=== PATIENT | female | born 1950 | race American Indian/Alaskan Native ===

== ENCOUNTER 2020-02-18 14:33 | Emergency (ER) | payer MEDICARE ==
[2020-02-18 16:14] LABS: Eosinophils % (Auto) 0.8 % (0.0-4.3); Monocytes # (Auto) 0.4 K/mm3 (0.0-0.8); Monocytes % (Auto) 6.7 % (0.0-7.3)
--- NOTE | 2020-02-18 16:18 | XRay Report ---
CHEST 1 VIEW INDICATION / CLINICAL INFORMATION: cp, svt. COMPARISON: None available. FINDINGS: SUPPORT DEVICES: None. HEART / MEDIASTINUM: Left atrial enlargement. Mediastinal and hilar contours are otherwise unremarkab le. LUNGS / PLEURA: No significant pulmonary or pleural abnormality. No pneumothorax. ADDITIONAL FINDINGS: No significant additional findings. IMPRESSION: 1. Findings suggesting left atrial enlargement. No acute cardiopulmonary process. Signer Name: Reynold Moreira MD Signed: 02/18/2020 4:13 PM Workstation Name: [id number]
[2020-02-18 16:24] LABS: Basophils % (Auto) 0.4 % (0.0-1.8); Hematocrit 39.6 % (30.3-42.9); Lymphocytes # (Auto) 1.9 K/mm3 (1.2-5.4); Lymphocytes % (Auto) 29.7 % (13.4-35.0); Mean Corpuscular HGB Conc 33 % (30-34); Mean Corpuscular Volume 91 fl (79-97); Platelet Count 193 K/mm3 (140-440); Red Blood Count 4.35 M/mm3 (3.65-5.03); Red Cell Distribution Width 13.6 % (13.2-15.2)
[2020-02-18 16:25] LABS: INR 0.97 (0.87-1.13); Partial Thromboplastin Time 24.1 Sec. (24.2-36.6)
[2020-02-18 16:39] LABS: Blood Urea Nitrogen 9 mg/dL (7-17); Calcium 9.6 mg/dL (8.4-10.2); Hemolysis Index 3
[2020-02-18 16:48] LABS: BUN/Creatinine Ratio 15
--- NOTE | 2020-02-18 16:50 | Emergency Department Report ---
ED Palpitations HPI - General Chief Complaint: Arrhythmia/Palpitations Stated Complaint: CHEST PAIN Time Seen by Provider: 02/18/20 15:19 Source: patient, EMS Mode of arrival: Stretcher Limitations: No Limitations - History of Present Illness Initial Comments: 69-year-old female the past medical history of obesity and elevated cholesterol noncompliant with cholesterol medication presents to the hospital complaining of palpitations. Patient states she felt sudden onset of chest pressure, fast heartbeat, lightheadedness, shortness of breath, diaphoresis. She took Tylenol without improvement. Upon EMS arrival her heart rate was 216. EKG showed SVT. Patient perform vagal maneuvers with conversion to sinus rhythm. She is currently asymptomatic and feeling better. Patient states she had a similar episode in September but started to feel better without calling EMS or seeing a physician. Patient states she is currently taking burdock root and castor oil for constipation and currently denies taking any other medication - Related Data Previous Rx's Medication Instructions Recorded Last Taken Type Metoprolol [Lopressor TAB] 12.5 mg PO BID #30 tablet 02/18/20 Unknown Rx Allergies Allergy/AdvReac Type Severity Reaction Status Date / Time No Known Allergies Allergy Unverified 02/18/20 16:12 ED Review of Systems ROS: Stated complaint: CHEST PAIN Other details as noted in HPI Comment: All other systems reviewed and negative ED Past Medical Hx - Past Medical History Previous Medical History?: Yes Additional medical history: Obese - Surgical History Past Surgical History?: Yes Additional Surgical History: R tib-fib sx - Social History Smoking Status: Never Smoker Substance Use Type: None - Medications Home Medications: Home Medications Medication Instructions Recorded Confirmed Last Taken Type Metoprolol [Lopressor TAB] 12.5 mg PO BID #30 tablet 02/18/20 Unknown Rx ED Physical Exam - General Limitations: No Limitations - Other Other exam information: General: No acute distress Head: Atraumatic Eyes: normal appearance ENT: Moist mucous membranes Neck: Normal appearance, no midline tenderness Chest: Clear to auscultation bilaterally CV: Regular rate and rhythm Abdomen: Soft, normal bowel sounds, nontender, nondistended, no rebound or guarding Back: Normal inspection Extremity: Normal inspection, full range of motion, no calf tenderness or leg edema Neuro: Alert O x 3, no facial asymmetry, speech clear, no gross motor sensory deficit Psych: Appropriate behavior Skin: No rash ED Course Vital Signs 02/18/20 02/18/20 02/18/20 14:37 15:10 16:00 Temperature 97.9 F Pulse Rate 92 H 79 Respiratory 18 16 16 Rate Blood Pressure 123/65 Blood Pressure 145/76 [Right] O2 Sat by Pulse 99 97 Oximetry 02/18/20 17:30 Temperature Pulse Rate 76 Respiratory 16 Rate Blood Pressure Blood Pressure 119/53 [Right] O2 Sat by Pulse 97 Oximetry - Consultations Consultation #1: 02/18/20 17:10 case d/w Dr Sommers at [place]. she states she will arrange for a follow-up appointment rec low dose metoprolol. She also states that patient was recommended to have Holter monitoring placed in 2019 but did not follow-up as instructed ED Medical Decision Making - Lab Data Result diagrams: 02/18/20 15:49 02/18/20 15:49 Lab Results 02/18/20 02/18/20 02/18/20 Range/Units 15:49 15:49 15:49 WBC 6.4 (4.5-11.0) K/mm3 RBC 4.35 (3.65-5.03) M/mm3 Hgb 13.0 (10.1-14.3) gm/dl Hct 39.6 (30.3-42.9) % MCV 91 (79-97) fl MCH 30 (28-32) pg MCHC 33 (30-34) % RDW 13.6 (13.2-15.2) % Plt Count 193 (140-440) K/mm3 Lymph % (Auto) 29.7 (13.4-35.0) % [place] % (Auto) 6.7 (0.0-7.3) % Eos % (Auto) 0.8 (0.0-4.3) % Baso % (Auto) 0.4 (0.0-1.8) % Lymph # 1.9 (1.2-5.4) K/mm3 [place] # 0.4 (0.0-0.8) K/mm3 Eos # 0.0 (0.0-0.4) K/mm3 Baso # 0.0 (0.0-0.1) K/mm3 Seg Neutrophils % 62.8 (40.0-70.0) % Seg Neutrophils # 3.9 (1.8-7.7) K/mm3 PT 13.0 (12.2-14.9) Sec. INR 0.97 (0.87-1.13) APTT 24.1 L (24.2-36.6) Sec. Sodium 138 (137-145) mmol/L Potassium 4.0 (3.6-5.0) mmol/L Chloride 102.2 (98-107) mmol/L Carbon Dioxide 26 (22-30) mmol/L Anion Gap 14 mmol/L BUN 9 (7-17) mg/dL Creatinine 0.6 (0.6-1.2) mg/dL Estimated GFR > 60 ml/min BUN/Creatinine Ratio 15 % Glucose 109 H (65-100) mg/dL Calcium 9.6 (8.4-10.2) mg/dL Magnesium 1.90 (1.7-2.3) mg/dL Troponin T < 0.010 (0.00-0.029) ng/mL - EKG Data -: EKG Interpreted by Ms EKG shows normal: sinus rhythm, ST-T waves (lvh, pvc) Rate: normal (81) - EKG Data 02/18/20 16:55 EMS EKG SVT rate 215 with converted to sinus by 104 after vasovagal maneuvers - Radiology Data Radiology results: report reviewed CHEST 1 VIEW INDICATION / CLINICAL INFORMATION: cp, svt. COMPARISON: None available. FINDINGS: SUPPORT DEVICES: None. HEART / MEDIASTINUM: Left atrial enlargement. Mediastinal and hilar contours are otherwise unremarkable. LUNGS / PLEURA: No significant pulmonary or pleural abnormality. No pneumothorax. ADDITIONAL FINDINGS: No significant additional findings. IMPRESSION: 1. Findings suggesting left atrial enlargement. No acute cardiopulmonary process. - Medical Decision Making Patient has remained asymptomatic during ED stay and in sinus rhythm. She will be discharged on very low-dose metoprolol and to follow-up with the [place] doctor as arranged Critical Care Time: No Critical care attestation.: If time is entered above; I have spent that time in minutes in the direct care of this critically ill patient, excluding procedure time. ED Disposition Clinical Impression: SVT (supraventricular tachycardia) Disposition: - TO HOME OR SELFCARE Is pt being admited?: No Does the pt Need Aspirin: No Condition: Stable Instructions: Supraventricular Tachycardia (ED) Additional Instructions: Take the medication as prescribed. Follow-up with your doctor or doctor/clinic provided. Return if symptoms worsen as indicated by your discharge instructions. Prescriptions: Metoprolol [Lopressor TAB] 12.5 mg PO BID #30 tablet Referrals: MD Elis [Other] - 02/21/20 4:20 pm Time of Disposition: 18:00
[2020-02-18 18:29] VITALS: BP 122/44
== END 2020-02-18 18:34 | disposition home or self-care (01) ==
LOC: ED 14:33
DX: I47.1 Supraventricular tachycardia (principal)
CPT/HCPCS: 36415; 71045; 80048; 83735; 84484; 85025; 85610; 85730; 93005